=== PATIENT | male | born 1965 | race Caucasian/White ===

== ENCOUNTER 2017-09-15 12:12 | Emergency (ER) | payer MEDICAID ==
[~2017-09-15] VITALS: Ht 172.7 cm; Wt 96.0 kg
[2017-09-15] MEDS ORDERED: IBUPROFEN 600MG TABLET PO ONE (15:15)
[2017-09-15 17:00] VITALS: BP 131/70
== END 2017-09-15 17:07 | disposition home or self-care (01) ==
LOC: ER 12:12
DX: M54.5 Low back pain (principal); Z87.891 Personal history of nicotine dependence
CPT/HCPCS: 99283

== ENCOUNTER 2018-03-17 16:47 | Emergency (ER) | payer MEDICAID ==
[~2018-03-17] VITALS: Ht 172.7 cm; Wt 103.0 kg
[2018-03-17] MEDS ORDERED: HYDROCODONE/ACETAMINOPHEN 5/325MG TABLET PO ONE (19:00)
[2018-03-17 23:25] VITALS: BP 129/74
== END 2018-03-17 23:32 | disposition home or self-care (01) ==
LOC: ER 23:24
DX: G56.01 Carpal tunnel syndrome, right upper limb (principal); M25.511 Pain in right shoulder; M25.521 Pain in right elbow
CPT/HCPCS: 73030; 73080; 93971; 99284; A4565

== ENCOUNTER 2022-11-17 16:16 | Emergency (ER) | payer MEDICAID, OTHER ==
[~2022-11-17] VITALS: Ht 177.8 cm; Wt 90.0 kg
[2022-11-17 16:24] VITALS: O2SAT 98
[2022-11-17] MEDS ORDERED: IBUP-2029 MT (17:58)
[2022-11-17] MEDS ORDERED: ACETAMINOPHEN 325MG TABLET PO ONE (18:00)
[2022-11-17 19:15] VITALS: BP 134/84; PULSE 88; RESP 20; TEMP 98.5
== END 2022-11-17 19:18 | disposition home or self-care (01) ==
LOC: ER 16:16
DX: S63.501A Unspecified sprain of right wrist, initial encounter (principal); Z13.9 Encounter for screening, unspecified; W01.0XXA Fall on same level from slipping, tripping and stumbling without subsequent striking against object, initial encounter; Y93.89 Activity, other specified; Y92.89 Other specified places as the place of occurrence of the external cause; Y99.8 Other external cause status
CPT/HCPCS: 29125; 73120; 99283; A4565